=== PATIENT | female | born 1990 | race Hispanic/Latino ===

== ENCOUNTER 2019-03-15 16:26 | Emergency (ER) | payer OTHER | END 2019-03-15 17:36 | disposition home or self-care (01) | LOC: EDH 16:26 | DX: R42 Dizziness and giddiness (principal) | CPT/HCPCS: 99281 ==

== ENCOUNTER 2022-11-06 17:55 | Emergency (ER) | payer MEDICAID ==
[~2022-11-06] VITALS: Ht 144.8 cm; Wt 75.7 kg
[2022-11-06 18:25] LABS: BASOPHILS % (AUTO) 0.3 % (0.0-5.0); EOSINOPHILS % (AUTO) 1.1 % (0.0-8.0); HEMATOCRIT 36.9 % (36-48); LYMPHOCYTES % (AUTO) 29.8 % (21.0-51.0); MEAN CORPUSCULAR HEMOGLOBIN 20.9 pg (27.0-33.0); MEAN CORPUSCULAR HGB CONC 29.8 g/dL (32.0-36.0); MEAN CORPUSCULAR VOLUME 70.2 fL (79-99); MONOCYTES % (AUTO) 4.2 % (3.0-13.0); NEUTROPHILS % (AUTO) 64.4 % (40.0-77.0); PLATELET COUNT (AUTO) 357 K/uL (130-400); RED BLOOD CELL COUNT(AUTO) 5.26 MIL/uL (4.00-5.50); RED CELL DISTRIBUTION WIDTH 17.6 % (11.0-15.5); WHITE BLOOD COUNT (AUTO) 12.2 K/uL (4.8-10.8)
[2022-11-06 18:26] VITALS: BP 116/74
[2022-11-06 18:34] LABS: CREATININE 0.6 mg/dL (0.5-1.5); POTASSIUM 3.8 mmol/L (3.5-5.1)
[2022-11-06 18:39] LABS: ALBUMIN 4.3 g/dL (3.5-5.0); TOTAL PROTEIN, SERUM 8.6 g/dL (6.0-8.3)
[2022-11-06 19:00] LABS: APPEARANCE,URINE CLEAR (CLEAR); BILIRUBIN,URINE NEGATIVE (NEGATIVE); COLOR,URINE LIGHT-YELLOW (YELLOW); GLUCOSE, URINE (UA) NEGATIVE (NEGATIVE); KETONES,URINE 5 mg/dL (NEGATIVE); LEUKOCYTE ESTERASE ,URINE NEGATIVE Leu/uL (NEGATIVE); NITRATE,URINE NEGATIVE (NEGATIVE); OCCULT BLOOD,URINE LARGE (NEGATIVE); PH,URINE 6.5 (5.0-8.0); PROTEIN,URINE NEGATIVE (NEGATIVE); UROBILINOGEN,URINE 0.2 mg/dL (0.2-1.0)
[2022-11-06 19:08] LABS: HCG,QUALITATIVE URINE NEGATIVE (NEGATIVE)
[2022-11-06 19:11] LABS: BACTERIA,URINE FEW /HPF (None Seen); MUCUS,URINE RARE LPF (None Seen); SQUAMOUS EPITHELIAL CELL,UR FEW /HPF (0-2); YEAST,URINE BUDDING FEW /HPF (None Seen)
[2022-11-06] MEDS ORDERED: DOCU-133 PO (21:49)
[2022-11-06] MEDS ORDERED: PHEN1SUP43 RC (21:49)
== END 2022-11-06 22:14 | disposition home or self-care (01) ==
LOC: EDH 17:55
DX: K59.00 Constipation, unspecified (principal); K92.1 Melena; Z98.890 Other specified postprocedural states
CPT/HCPCS: 36415; 74176; 80053; 81001; 81025; 82270; 83690; 85025

== ENCOUNTER 2023-01-27 19:52 | Emergency (ER) | payer MEDICAID ==
[~2023-01-27] VITALS: Ht 144.8 cm; Wt 74.4 kg
[~2023-01-27 19:52] MED LIST: DOCU-133 PO; PHEN1SUP43 RC
[2023-01-27 22:03] VITALS: BP 128/84
[2023-01-27 22:14] LABS: APPEARANCE,URINE CLEAR (CLEAR); BILIRUBIN,URINE NEGATIVE (NEGATIVE); COLOR,URINE LIGHT-YELLOW (YELLOW); GLUCOSE, URINE (UA) NEGATIVE (NEGATIVE); KETONES,URINE NEGATIVE (NEGATIVE); LEUKOCYTE ESTERASE ,URINE NEGATIVE Leu/uL (NEGATIVE); NITRATE,URINE NEGATIVE (NEGATIVE); OCCULT BLOOD,URINE SMALL (NEGATIVE); PH,URINE 6.5 (5.0-8.0); PROTEIN,URINE NEGATIVE (NEGATIVE)
[2023-01-27 22:19] LABS: BACTERIA,URINE RARE /HPF (None Seen); CALCIUM OXALATE CRYSTALS,UR FEW /LPF (None Seen); RBC,URINE 0-1 /HPF (0-1); SQUAMOUS EPITHELIAL CELL,UR RARE /HPF (0-2); YEAST,URINE BUDDING RARE /HPF (None Seen)
[2023-01-27] MEDS ORDERED: CEFD300C3 PO (22:32)
[2023-01-27] MEDS ORDERED: CIPR7.5D OT (22:32)
[2023-01-27] MEDS ORDERED: IBUP-2070 PO (22:32)
[2023-01-27] MEDS ORDERED: PRED20TA3 PO (22:32)
== END 2023-01-27 22:46 | disposition home or self-care (01) ==
LOC: EDH 19:52
DX: H60.501 Unspecified acute noninfective otitis externa, right ear (principal)
CPT/HCPCS: 81001